=== PATIENT | male | born 1995 | race Caucasian/White ===

== ENCOUNTER 2024-05-09 12:55 | Inpatient (IN) | payer OTHER ==
[~2024-05-09] VITALS: Ht 170.1 cm; Wt 64.9 kg
[2024-05-09 13:35] VITALS: BP 135/96
[2024-05-09] MEDS ORDERED: Thiamine 200 MG/2 ML VIAL IV ONE (15:45)
[2024-05-09] MEDS ORDERED: DIAZEPAM 10 MG/2 ML SYR IV ONE (15:45)
[2024-05-09] MEDS ORDERED: SODIUM CHLORIDE 0.9% 1,000 ML IV ONE (15:45)
[2024-05-09 16:02] LABS: BASO # 0.1 10*3/uL (0.0-0.1); BASO % 0.8 % (0.0-1.0); HEMATOCRIT 48.3 % (42.0-52.0); MEAN CELL VOLUME 89.4 fl (80.0-94.0); MEAN CORPUSCULAR HGB 31.1 pg (27.0-31.0); MEAN CORPUSCULAR HGB CONC 34.8 g/dl (33.0-37.0); MEAN PLATELET VOLUME 9.9 fl (9.6-12.3); MONO # 0.4 10*3/uL (0.1-1.0); MONO % 5.6 % (3.0-9.0); NEUT # 5.1 10*3/uL (2.3-7.9); PLATELET COUNT AUTOMATED 246 10*3/uL (130-400); RED CELL DISTRI WIDTH 13.5 % (0-14.5); WHITE BLOOD COUNT 7.2 10*3/uL (4.8-10.8)
[2024-05-09 16:51] LABS: URINE AMPHETAMINES Negative (1000ng/ml); URINE BARBITURATES Negative (200ng/ml); URINE BENZODIAZEPINES Negative (200ng/ml); URINE CANNABINOIDS (THC) Positive (50ng/ml); URINE COCAINE Negative (300ng/ml); URINE METHADONE Negative (300ng/ml); URINE OPIATES Negative (300ng/ml); URINE PHENCYCLIDINE Negative (25ng/ml)
[2024-05-09 16:52] LABS: ALKALINE PHOSPHATASE 78 U/L (46-116); CHLORIDE 102 mmol/L (98-107); ETHYL ALCOHOL 228.4 mg/dl (<3); POTASSIUM 4.5 mmol/L (3.4-5.1); SGPT/ALT 42 U/L (5-49); TOTAL PROTEIN 8.5 gm/dL (6.0-8.0)
[2024-05-09 17:01] LABS: BUN < 5 mg/dl (9-23)
[2024-05-09 17:23] VITALS: BP 130/80
[2024-05-09] MEDS ORDERED: Ondansetron Hydrochloride 4 MG/2 ML VIAL IV PRN (17:50)
[2024-05-09] MEDS ORDERED: FOLIC ACID 1 MG TAB PO ONE (18:00)
[2024-05-09] MEDS ORDERED: DEXMEDETOMIDINE IN 0.9 % NACL 100 ML IV SCH (18:00)
[2024-05-09] MEDS ORDERED: Nicotine 14 MG PATCH T SCH (18:00)
[2024-05-09] MEDS ORDERED: MAGNESIUM SULFATE 4 GM/100 ML IVB IV ONE (18:00)
[2024-05-09] MEDS ORDERED: LORazepam 2 MG/ML VIAL IV PRN (18:20)
[2024-05-09 19:24] VITALS: BP 120/83
[2024-05-09 21:00] VITALS: BP 126/72
[2024-05-09] MEDS ORDERED: Thiamine 200 MG/2 ML VIAL IV SCH (22:00)
[2024-05-09 23:00] VITALS: BP 118/67
[2024-05-09 23:35] VITALS: BP 110/49
[2024-05-10 03:58] VITALS: BP 101/52
[2024-05-10 04:55] LABS: ALKALINE PHOSPHATASE 73 U/L (46-116); BUN 7 mg/dl (9-23); CHLORIDE 101 mmol/L (98-107); SGPT/ALT 34 U/L (5-49); TOTAL PROTEIN 7.5 gm/dL (6.0-8.0)
[2024-05-10 06:08] LABS: BASO # 0.1 10*3/uL (0.0-0.1); BASO % 1.2 % (0.0-1.0); EOS % 0.6 % (1.0-4.0); HEMATOCRIT 42.9 % (42.0-52.0); MEAN CELL VOLUME 90.3 fl (80.0-94.0); MEAN CORPUSCULAR HGB 30.5 pg (27.0-31.0); MEAN CORPUSCULAR HGB CONC 33.8 g/dl (33.0-37.0); MEAN PLATELET VOLUME 10.2 fl (9.6-12.3); MONO # 0.4 10*3/uL (0.1-1.0); MONO % 7.4 % (3.0-9.0); NEUT % 58.7 % (47.0-73.0); PLATELET COUNT AUTOMATED 191 10*3/uL (130-400); RED BLOOD COUNT 4.75 10*6/uL (4.50-5.90); RED CELL DISTRI WIDTH 13.2 % (0-14.5); WHITE BLOOD COUNT 5.2 10*3/uL (4.8-10.8)
[2024-05-10 08:00] VITALS: BP 103/56
[2024-05-10] MEDS ORDERED: SODIUM CHLORIDE 0.9% 1,000 ML IV ONE (09:10)
[2024-05-10] MEDS ORDERED: MULTIVITAMIN 1 TAB TAB PO SCH (10:00)
[2024-05-10] MEDS ORDERED: Enoxaparin Sodium 40 MG/0.4 ML SYR SC SCH (10:00)
[2024-05-10] MEDS ORDERED: SODIUM CHLORIDE 0.9% 1,000 ML IV SCH (11:55)
[2024-05-10 12:00] VITALS: BP 110/49; BP 90/44
[2024-05-10 16:00] VITALS: BP 115/58
[2024-05-10 18:00] VITALS: BP 99/39
[2024-05-11] VITALS: BP 102/56
[2024-05-11 04:00] VITALS: BP 97/58
[2024-05-11 06:28] LABS: BUN 8 mg/dl (9-23); CHLORIDE 100 mmol/L (98-107); POTASSIUM 3.9 mmol/L (3.4-5.1)
[2024-05-11 06:49] LABS: BASO % 0.8 % (0.0-1.0); EOS # 0.1 10*3/uL (0.0-0.4); HEMATOCRIT 42.8 % (42.0-52.0); MEAN CELL VOLUME 91.5 fl (80.0-94.0); MEAN CORPUSCULAR HGB 31.6 pg (27.0-31.0); MEAN CORPUSCULAR HGB CONC 34.6 g/dl (33.0-37.0); MEAN PLATELET VOLUME 10.5 fl (9.6-12.3); MONO # 0.5 10*3/uL (0.1-1.0); MONO % 10.6 % (3.0-9.0); NEUT # 3.2 10*3/uL (2.3-7.9); NEUT % 65.7 % (47.0-73.0); PLATELET COUNT AUTOMATED 147 10*3/uL (130-400); RED BLOOD COUNT 4.68 10*6/uL (4.50-5.90); RED CELL DISTRI WIDTH 12.4 % (0-14.5); WHITE BLOOD COUNT 4.9 10*3/uL (4.8-10.8)
[2024-05-11 08:00] VITALS: BP 120/60
== END 2024-05-11 22:01 | disposition left against medical advice (07) | DRG 770 ==
LOC: ED 12:55 → EDHOLD 17:26 → ICCU 17:26
PROVIDERS: Nurse Practitioner Family; ADMIT Internal Medicine; ATTEND Internal Medicine
DX: F10.131 Alcohol abuse with withdrawal delirium (principal); F17.210 Nicotine dependence, cigarettes, uncomplicated; F41.9 Anxiety disorder, unspecified; R10.84 Generalized abdominal pain; F17.200 Nicotine dependence, unspecified, uncomplicated; Z53.29 Procedure and treatment not carried out because of patient's decision for other reasons; Z71.6 Tobacco abuse counseling; Z81.1 Family history of alcohol abuse and dependence; Y90.8 Blood alcohol level of 240 mg/100 ml or more